=== PATIENT | female | born 1995 | race Caucasian/White ===

== ENCOUNTER 2020-05-14 21:25 | Inpatient (IN) ==
--- OUTSIDE RECORDS SUMMARY | 2020-05-14 21:30 | External Medical Summary | Continuity of Care Document ---
:1995 Author Name Bony MJose, Provider Address Unavailable Unavailable , Care Team Providers Name Role Phone Unavailable Unavailable Unavailable PADMINI NEWELL Unavailable Unavailable Unavailable Unavailable Unavailable Problems Asthma (493.90) (J45.909) Ureteric stone (592.1) (N20.1) Abdominal pain, LLQ (789.04) (R10.32) Nephrolithiasis (592.0) (N20.0) Urinary tract infection (599.0) (N39.0) Allergies and Adverse Reactions Morphine Derivatives (Allergy) Medications Excedrin TABS , M.D. Refills: 0 Nitrofurantoin 100 MG CAPS , M.D. Refills: 0 Procedures Procedures not documented Immunizations Immunizations not documented Family History Father Family history of cardiac disorder (V17.49) (Z82.49) Status: Active Social History - Smoking Status Smokes tobacco daily Plan of Treatment Planned Observations Planned Goals not documented Results No Known Results Results not documented
[2020-05-14] MEDS ORDERED: LACTATED RINGER'S 1,000 ML IV PRN (21:31)
[2020-05-14] MEDS ORDERED: PENICILLIN G POTASSIUM 3 MU in DEXTROSE 5% 100 ML IV PRN (21:31)
[2020-05-14] MEDS ORDERED: PENICILLIN G POTASSIUM 6 MU in DEXTROSE 5% 250 ML IV STA (21:31)
[2020-05-14] MEDS ORDERED: OXYTOCIN 30 UNITS/500 ML BAG IV PRN ×2 (21:31→22:06)
--- NOTE | 2020-05-14 21:35 | Obstetrical Progress Note ---
Date of Service May 14, 2020 Subjective Pt presented via ambulance FHR; CAT1 Ctx; 1-2mins VE: /0 station with bulging membranes admit anticipate VD
[2020-05-14] MEDS ORDERED: SODIUM CHLORIDE 0.9% INJ 10 ML VIAL ONE (21:44)
[2020-05-14] MEDS ORDERED: ePHEDrine sulfate 50 MG/ML AMP ONE (21:44)
[2020-05-14] MEDS ORDERED: BUPIVACAINE 0.25% 30 ML VIAL ONE (21:45)
[2020-05-14] MEDS ORDERED: fentaNYL citrate 100 MCG/2 ML VIAL ONE (21:45)
[2020-05-14] MEDS ORDERED: fentaNYL 2MCG/ML ROPIVACAINE 1.25MG/ML 100 ML BAG EPI ONE (21:46)
[2020-05-14 21:52] LABS: Hematocrit (blood only) 36.7 % (37-47); Hemoglobin 12.1 g/dL (12.0-16.0); Mean Corpuscular Hemoglobin 27.8 pg (25-34); Mean Corpuscular Volume 84.2 fL (80-100); Mean Platelet Volume 11.3 fL (7.4-10.4); Platelet Count 206 K/uL (130-400); RDW Coefficient of Variation 14.6 % (11.5-14.5); RDW Standard Deviation 44.8 fL (36.4-46.3); Red Blood Count 4.36 M/uL (4.2-5.4); White Blood Count 15.11 K/uL (4.8-10.8)
[2020-05-14] MEDS ORDERED: miSOPROStoL 200 MCG TAB ONE (22:02)
[2020-05-14] MEDS ORDERED: ERYTHROMYCIN OP OINT 1 GM PKT ONE (22:03)
[2020-05-14] MEDS ORDERED: SUPERCREAM 0.870% 15 GM JAR EXT PRN (22:06)
[2020-05-14] MEDS ORDERED: BENZOCAINE 20% AER SPR 82.5 GM CAN EXT PRN (22:06)
[2020-05-14] MEDS ORDERED: miSOPROStoL 200 MCG TAB PR ONE (22:06)
[2020-05-14] MEDS ORDERED: HYDROCORTISONE ACETATE 25 MG SUPP PR PRN (22:06)
[2020-05-14] MEDS ORDERED: bisacodyL 10 MG SUPP PR PRN (22:06)
[2020-05-14] MEDS ORDERED: DIPHTHERIA/TETANUS/PERTUSSIS 0.5 ML SYR/VIAL IM ONE (22:06)
[2020-05-14] MEDS ORDERED: METHYLERGONOVINE MALEATE 0.2 MG/ML AMP IM ONE (22:06)
[2020-05-14] MEDS: IBUPROFEN 600 MG TAB PO PRN (22:21)
[2020-05-14 23:11] LABS: Base Excess Cord Venous Blood -1.7 mEq/L (-7.7-1.9); Cord Venous Blood HCO3 23 mmol/L (18.4-26.8); Cord Venous Blood PCO2 37 mmHg (30.4-57.2); Cord Venous Blood PO2 30 mmHg (14.1-43.3)
[2020-05-15] MEDS: ACETAMINOPHEN 325 MG TAB PO PRN ×3 (00:47→21:43)
[2020-05-15] MEDS: IBUPROFEN 600 MG TAB PO PRN ×6 (01:53→23:53)
--- NOTE | 2020-05-15 04:18 | Delivery Summary ---
DATE OF OPERATION: 05/14/2020 The patient delivered a live infant with right hand compound presentation. There was no nuchal cord. was delivered. Delayed cord clamp was performed after 1 minute. Cord blood and cord gas were obtained. Placenta was spontaneously delivered. Inspection of placenta shows a meconium stained placenta. There was meconium at time of rupture. Placenta sent to pathology for pathological analysis. Inspection of the perineum shows no significant laceration or tears. Estimated blood loss is 450 mL. Baby and mother are doing well in recovery. I attest to the content of the Intraoperative Record and any orders documented therein. Any exceptions are noted below. MTDD
[2020-05-15 06:56] LABS: Hematocrit (blood only) 35.1 % (37-47); Hemoglobin 11.5 g/dL (12.0-16.0); Mean Corpuscular Hemoglobin 27.8 pg (25-34); Mean Corpuscular Hgb Conc 32.8 g/dL (32-36); Platelet Count 201 K/uL (130-400); RDW Coefficient of Variation 14.6 % (11.5-14.5); RDW Standard Deviation 45.2 fL (36.4-46.3); Red Blood Count 4.13 M/uL (4.2-5.4); White Blood Count 18.24 K/uL (4.8-10.8)
[2020-05-15] MEDS: DOCUSATE SODIUM 100 MG CAP PO SCH ×2 (08:01→21:41)
[2020-05-15] MEDS: PRENATAL VITAMIN 1 TAB PO SCH (08:01)
--- NOTE | 2020-05-15 08:53 | Obstetrical Progress Note ---
Date of Service May 15, 2020 Assessment & Plan Admission and Anticipated Discharge Date Admission Date: May 14, 2020 Physical Exam Physical Exam: abdomen soft and non tender ambulating well no calf tenderness vaginal bleeding scant hgb 11.5 Results & Data ([facility]) Vital Signs (Past 12 Hours) Vital Signs Temp Pulse Pulse Resp BP BP Pulse Ox 05/15/20 07:30 36.8 C 68 16 120/70 05/15/20 04:25 36.6 C 56 L 18 131/81 05/15/20 00:55 36.7 C 86 18 126/81 05/15/20 00:07 78 122/58 L 05/15/20 00:05 18 05/14/20 23:47 73 128/84 05/14/20 23:35 18 05/14/20 23:31 77 141/73 H 05/14/20 23:17 73 136/67 05/14/20 23:05 18 128/84 05/14/20 23:01 80 119/56 L 05/14/20 22:50 18 05/14/20 22:47 125/58 L 05/14/20 22:43 36.6 C 20 05/14/20 22:35 18 05/14/20 22:32 83 131/66 05/14/20 22:20 18 05/14/20 22:16 76 139/82 05/14/20 22:08 84 136/82 05/14/20 22:05 18 05/14/20 22:01 76 129/80 05/14/20 21:55 113 H 87 L 05/14/20 21:54 108 H 98 05/14/20 21:49 88 98 05/14/20 21:43 72 132/81 05/14/20 21:35 36.6 C
[2020-05-15] MEDS ORDERED: bisacodyL 5 MG TABEC PO SCH (20:00)
[2020-05-15] MEDS ORDERED: AMITRIPTYLINE HCL 25 MG TAB PO SCH (21:00)
[2020-05-16 07:04] LABS: Hematocrit (blood only) 35.6 % (37-47); Hemoglobin 11.6 g/dL (12.0-16.0)
[2020-05-16] MEDS: IBUPROFEN 600 MG TAB PO PRN ×2 (08:14→13:34)
[2020-05-16] MEDS: DOCUSATE SODIUM 100 MG CAP PO SCH (08:14)
[2020-05-16] MEDS: PRENATAL VITAMIN 1 TAB PO SCH (08:14)
--- NOTE | 2020-05-16 09:49 | Obstetrical Progress Note ---
Date of Service May 16, 2020 Assessment & Plan (1) Normal course: PPD #2 pt doing well No complaints d/home with institutions Subjective Ambulation: ambulating normally Voiding: no voiding problems Passing Gas:: Yes Diet Tolerance:: regular diet Lochia:: Small Feeding Type:: breast feeding Review of Systems All systems reviewed & are unremarkable except as noted in HPI & below Physical Exam Constitutional WD/WN, vitals as above well developed and well nourished Eyes PERRL, conjunctivae normal, anicteric sclerae Neck trachea midline, no thyromegaly Respiratory normal respiratory effort, lungs clear to auscultation Auscultation: no crackles, no rales and no wheezes Cardiovascular RRR, no murmur, no edema Gastrointestinal (Abdomen) normal bowel sounds, soft, nontender, no hepatosplenomegaly Uterus is below umbilicus Musculoskeletal no cyanosis or clubbing, extremities motor strength 5/5 Skin no rashes, warm and dry Neurologic patellar DTR's 2+ bilat, sensation intact Psychiatric A+Ox3, euthymic affect Genitourinary normal external appearance Results & Data ([facility]) Vital Signs (Past 12 Hours) Vital Signs Temp Pulse Resp BP Pulse Ox 05/15/20 23:45 36.5 C 64 18 95/52 L 99
[2020-05-16 16:15] VITALS: BP 113/71; PULSE 81; TEMP 97.9; O2SAT 97
[2020-05-16] MEDS: ACETAMINOPHEN 325 MG TAB PO PRN (16:49)
== END 2020-05-16 17:05 | disposition home or self-care (01) | DRG 807 ==
LOC: OPB 21:25 → 4S1 21:26 → 4S2 05-15 00:45

== ENCOUNTER 2024-05-22 13:09 | Observation (INO) ==
[2024-05-22 14:02] LABS: Appearance Urine Clear (Clear); Bacteria Urine Automated None Seen (None Seen); Bilirubin Urine Negative (Negative); Blood Urine Negative (Negative); Cast Urine Automated 0-2 /lpf (0-2); Color Urine Yellow; Glucose Urine UA Negative (Negative); Ketones Urine Negative (Negative); Leukocyte Esterase Urine Trace (Negative); Nitrite Urine Negative (Negative); Protein Urine Negative (Negative); Specific Gravity Urine 1.022 (1.000-1.030); Urobilinogen Urine Negative (Negative); WBC Urine Automated 0-5 /hpf (0-5)
[2024-05-22 14:02] LABS: Basophils # (auto) 0.07 K/uL (0.00-0.20); Basophils % (auto) 0.7 %; Eosinophils # (auto) 0.09 K/uL (0.00-0.50); Eosinophils % (auto) 0.9 %; Hematocrit (blood only) 46.2 % (37.0-47.0); Hemoglobin 15.5 g/dl (12.0-16.0); Immature Granulocytes # (auto) 0.03 K/uL (0.01-0.20); Immature Granulocytes % (auto) 0.3 %; Lymphocytes # (auto) 0.54 K/uL (1.20-3.40); Lymphocytes % (auto) 5.3 %; Mean Corpuscular Hemoglobin 27.2 pg (25.0-34.0); Mean Corpuscular Hgb Conc 33.5 g/dL (32.0-36.0); Mean Corpuscular Volume 81.1 fL (80.0-100.0); Mean Platelet Volume 10.5 fL (9.4-12.4); Monocytes % (auto) 2.9 %; Neutrophils # (auto) 9.25 K/uL (1.40-6.50); Neutrophils % (auto) 89.9 %; Platelet Count 232 K/uL (130-400); RDW Coefficient of Variation 13.9 % (11.5-14.5); RDW Standard Deviation 40.4 fL (36.4-46.3); White Blood Count 10.28 K/ul (4.8-10.8)
[2024-05-22 14:14] LABS: Pregnancy Test, Serum Negative (Negative)
[2024-05-22 14:20] LABS: Albumin Globulin Ratio 1.5 (0.9-2); Albumin Level 4.6 gm/dl (3.4-5.0); BUN Creatinine Ratio 16.5 (10-20); Bilirubin,Total 0.9 mg/dl (0.2-1.0); Calcium 9.5 mg/dl (8.6-10.3); Creatinine Clr Calc Pharmacy 108.6 ml/min; Globulin 3.1 gm/dl (2.5-4.0); Total Protein 7.7 gm/dl (6.0-8.3)
[2024-05-22 14:25] LABS: Troponin I High Sensitivity 2.4 pg/ml (0-14)
[2024-05-22 14:28] LABS: Partial Thromboplastin Time 28 Seconds (21-31); Prothrombin Time 10.6 Seconds (9.0-12.0)
--- NOTE | 2024-05-22 14:31 | Emergency Department Note ---
Impression & Plan Left ovarian cyst, Deep vein thrombosis (DVT) ED Provider Note NAME: DC MELO AGE: 28 SEX: F : 1995 ARRIVES VIA: Walk-In INFORMANT: Patient ED PROVIDER(S): AISHA Valle, Jocelynn Robles MD CHIEF COMPLAINT: Fever HISTORY OF PRESENT ILLNESS: This 28-year-old female patient presents to the emergency department for evaluation of a stomach infection approximately 1 month ago. She reports she was told to return to the emergency department for any returning symptoms. She states fever, body aches, palpitations for the last 4 days. The patient reports she was diagnosed with diverticulitis, and was provided antibiotics. She reports the pain began again in the left lower quadrant, and she is concerned for return of this infection. REVIEW OF SYSTEMS: A review of systems was performed with positives and pertinent negatives listed in the history of present illness. All other systems were reviewed and are negative. ALLERGIES: See below MEDICATIONS: See below PMH: See below PHYSICAL EXAM: VITALS: Vitals are noted on the nurse's note and reviewed by myself. Vital signs stable. GENERAL: 28-year-old female, in no acute distress, nondiaphoretic, well- developed well-nourished. SKIN: The skin was without rashes, erythema, edema, or bruising. HEAD: Normocephalic atraumatic. HEART: Regular rate and rhythm without murmurs gallops or rubs. LUNGS: Clear to auscultation bilaterally without wheezes, rales or rhonchi. No retractions or accessory muscle use. ABDOMEN: Positive bowel sounds x 4. Soft, tender to palpation diffuse lower abdomen, no rebound tenderness or guarding. No signs of peritonitis. MUSCULOSKELETAL: No muscle atrophy, erythema, or edema noted. Normal gait. Strength 5/5 throughout. NEURO: Patient was alert and oriented to person place and time. No focal neurological deficits. MEDICAL DECISION MAKING: The patient is a pleasant 28-year-old female who arrives to the emergency department for evaluation of the above-stated complaint. Initial workup was performed in triage including a saline lock, CBC, CMP, lipase, serum , and urinalysis were obtained. Lab work was unremarkable, urinalysis was negative for infection. CT imaging of the abdomen and pelvis with IV contrast was obtained to rule out diverticulitis, or other intra-abdominal pathology, which showed no sign of infection, however there was a finding of a left complex ovarian cyst, as well as a right internal and external common iliac vein DVT. Hypercoagulability panel was obtained at that time, and weight-based heparin dosing with bolus was ordered. Pelvic ultrasound was also obtained to rule out ovarian torsion on the left. Ultrasound imaging was negative for ovarian torsion, however imaging does show the complex cyst which will need further evaluation by chip washer. [facility], Dr. Hernandez, for management of CT findings. Please refer to his documentation for further patient workup and care. Continuous company accountant: Order was placed for continuous company accountant. Patient was placed on the company accountant. Patient was noted to be in normal sinus rhythm at an initial rate of 95 bpm. DIFFERENTIAL DIAGNOSIS: Appendicitis, ovarian cyst, ovarian torsion, ectopic , TOA, PID, infections, diverticulitis, UTI, obstruction, mesenteric ischemia, aortic pathology, DVT, inflammatory bowel disease, renal colic, PUD, pancreatitis, biliary pathology, hernia, volvulus, constipation, as well as other pathologies. The chart was completed utilizing [employer] Speech voice recognition software. Grammatical errors, random word insertions, pronoun errors, and incomplete sentences are an occasional consequence of this system due to software limitations, ambient noise, and hardware issues. Any formal questions or concerns about the content, text, or information contained within the body of this dictation should be directly addressed to the physician for clarification. Past Med/Surg History Problem List (Updated 05/24/24 @ 08:08 by AISHA Gimenez) Adnexal fullness Vaginal discharge Left ovarian cyst (Acute) Deep vein thrombosis (DVT) (Acute) Enteritis Diverticulitis Normal course Renal calculi (Chronic) Asthma (Chronic) Depression (Chronic) (Acute) Tobacco use disorder (Chronic) Anxiety (Chronic) H/O nephrostomy (Chronic) Abrasion of multiple sites of left lower extremity (Acute) Abrasion of multiple sites of right lower extremity (Acute) Acute chest pain (Acute) Contusion of right chest wall (Acute) E. 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 Beliefs That Will Affect Care: None marital status: Current Living Situation: Family Current Living Situation Comment: apartment current occupational status: disabled How many Children do You have: 2 Feels Safe at Home: Yes Safety Concerns: Feels Safe At This Time during the past year weight has: increased > 10 lbs Assistive Devices: None Allergies Allergies Allergy/AdvReac Type Severity Reaction Status Date / Time morphine Allergy Intermediate RASH,N/V Verified 05/22/24 17:02 mold Allergy Mild Congested Unverified 05/22/24 17:02 mushroom Allergy Mild Rash Unverified 05/22/24 17:02 Home Meds Home Medications Medication Instructions Recorded Confirmed ALBUTEROL HFA (VENTOLIN HFA) 2 puff inhalation BID PRN 02/08/18 05/22/24 SOB/Wheezing #1 inhaler aspirin-caffeine 500 mg-32.5 mg 2 tab PO DAILY PRN Pain 05/16/24 05/22/24 tablet (Stephany Back and Body) docusate sodium 100 mg capsule 100 mg PO DAILY 05/16/24 05/22/24 famotidine 20 mg tablet 20 mg PO DAILY 05/16/24 05/22/24 fluticasone propionate 110 2 puff inhalation BID 05/16/24 05/22/24 mcg/actuation HFA aerosol inhaler magnesium 200 mg tablet 200 mg PO DAILY 05/16/24 05/22/24 oxycodone 5 mg tablet 5 mg PO BID PRN Pain 05/16/24 05/22/24 pantoprazole 40 mg tablet,delayed 40 mg PO DAILY 05/16/24 05/22/24 release tamsulosin 0.4 mg capsule 0.4 mg PO DAILY 05/16/24 05/22/24 Previous Rx's Medication Instructions Recorded ondansetron 4 mg disintegrating 4 mg PO Q6H PRN nausea and 10/21/23 tablet vomiting #12 tabs Results & Data (ED) Vital Signs Vital Signs - 24 hr 05/22/24 13:18 Temperature 36.8 C Temperature Source Temporal Artery Scan Pulse Rate 110 H Respiratory Rate 20 Blood Pressure 132/84 Blood Pressure Mean 100 Blood Pressure Position Sitting Pulse Oximetry 99 Oxygen Delivery Method Room Air Sepsis Recent Fever Within 48 Hours No Sepsis New/Unexplained Change in Mental Status N/A Sepsis Action Taken by Nursing No Action Required Home Medications Current Medication List: was personally reviewed by me Laboratory Data Attestation: I reviewed the patient's lab results. 05/24/24 06:20 05/24/24 06:20 Lab Results 05/22/24 05/22/24 05/22/24 Range/Units 12:00 13:35 13:38 WBC 10.28 (4.8-10.8) K/ul RBC 5.70 H (4.20-5.40) M/uL Hgb 15.5 (12.0-16.0) g/dl Hct 46.2 (37.0-47.0) % MCV 81.1 (80.0-100.0) fL MCH 27.2 (25.0-34.0) pg MCHC 33.5 (32.0-36.0) g/dL RDW Std Deviation 40.4 (36.4-46.3) fL RDW Coeff of [place] 13.9 (11.5-14.5) % Plt Count 232 (130-400) K/uL MPV 10.5 (9.4-12.4) fL Immature Gran % (Auto) 0.3 % Neut % (Auto) 89.9 % Lymph % (Auto) 5.3 % Towns % (Auto) 2.9 % Eos % (Auto) 0.9 % Baso % (Auto) 0.7 % Neut # (Auto) 9.25 H (1.40-6.50) K/uL Lymph # (Auto) 0.54 L (1.20-3.40) K/uL Towns # (Auto) 0.30 (0.11-0.59) K/uL Eos # (Auto) 0.09 (0.00-0.50) K/uL Baso # (Auto) 0.07 (0.00-0.20) K/uL Immature Gran # (Auto) 0.03 (0.01-0.20) K/uL PT 10.6 (9.0-12.0) Seconds INR 1.0 (0.9-1.1) APTT 28 (21-31) Seconds PTT Ratio 1.0 Sodium 138 (136-145) mmol/L Potassium 4.0 (3.5-5.1) mmol/L Chloride 107 (98-107) mmol/L Carbon Dioxide 22 (21-32) mmol/L Anion Gap 9 (3-11) BUN 15 (6-23) mg/dl Creatinine 0.91 (0.6-1.2) mg/dl Est Cr Clr Drug Dosing 108.6 ml/min eGFR 87.04 BUN/Creatinine Ratio 16.5 (10-20) Glucose 94 (70-99(Fasting)) mg/dl Calcium 9.5 (8.6-10.3) mg/dl Total Bilirubin 0.9 (0.2-1.0) mg/dl AST 15 (13-39) U/L ALT 12 (7-52) U/L Alkaline Phosphatase 84 (34-104) U/L Troponin I High Sens 2.4 (0-14) pg/ml Total Protein 7.7 (6.0-8.3) gm/dl Albumin 4.6 (3.4-5.0) gm/dl Globulin 3.1 (2.5-4.0) gm/dl Albumin/Globulin Ratio 1.5 (0.9-2) Lipase 29 (11-82) U/L HCG, Qual Negative (Negative) Urine Color Yellow Urine Appearance Clear (Clear) Urine pH 7.0 (4.5-7.5) Ur Specific [place] 1.022 (1.000-1.030) Urine Protein Negative (Negative) Urine Glucose (UA) Negative (Negative) Urine Ketones Negative (Negative) Urine Blood Negative (Negative) Urine Nitrite Negative (Negative) Urine Bilirubin Negative (Negative) Urine Urobilinogen Negative (Negative) Ur Leukocyte Esterase Trace H (Negative) Urine WBC (Auto) 0-5 (0-5) /hpf Urine RBC (Auto) 3-5 H (0-2) /hpf U Hyaline Cast (Auto) 0-2 (0-2) /lpf U Epithel Cells (Auto) 6-10 H (0-2) /hpf Urine Bacteria (Auto) None Seen (None Seen) HPV E6/E7 mRNA Not Detected (NotDetected) Administered Medications Acetaminophen (Acetaminophen 325 Mg Tab) 650 mg PO Q4H PRN PRN Reason: Pain or Fever Stop: 06/21/24 19:46 Last Admin: 05/24/24 06:12 Dose: 650 mg Documented By: Admin: 05/23/24 15:53 Dose: 650 mg Documented By: Admin: 05/22/24 21:08 Dose: 650 mg Documented By: HECTOR Famotidine (Famotidine 20 Mg Tab) 20 mg PO DAILY [facility] Stop: 06/22/24 08:59 Last Admin: 05/23/24 08:47 Dose: 20 mg Documented By: NEETU Fluticasone Furoate (Fluticasone Furoate 200mcg 14 Puffs/Inhaler) 1 puffs INH DAILY [facility] Stop: 06/22/24 08:59 Last Admin: 05/23/24 08:48 Dose: 1 puffs Documented By: NEETU Heparin Sodium/Dextrose (Heparin Sodium/Dextrose) 25,000 units in 500 mls @ 27 mls/hr IV .[id number] [facility]; Protocol Stop: 06/21/24 17:29 Last Titration: 05/24/24 06:57 Dose: 1,350 units/hr, 27 mls/hr Documented By: HECTOR Co-signed By: DAPHNE Titration: 05/23/24 18:52 Dose: 1,350 units/hr, 27 mls/hr Documented By: NEETU Co-signed By: HECTOR Admin: 05/23/24 14:23 Dose: 1,350 units/hr, 27 mls/hr Documented By: LAWRENCE Co-signed By: KATELIN Titration: 05/23/24 12:32 Dose: Infused Documented By: LAWRENCE Co-signed By: KATELIN Titration: 05/23/24 07:17 Dose: 1,350 units/hr, 27 mls/hr Documented By: HECTOR Co-signed By: NEETU Titration: 05/23/24 01:20 Dose: 1,350 units/hr, 27 mls/hr Documented By: HECTOR Co-signed By: ALISHA Admin: 05/22/24 18:00 Dose: 1,350 units/hr, 27 mls/hr Documented By: FARHAT Co-signed By: ROOSEVELT Nicotine Polacrilex (Nicotine Polacrilex 2 Mg Gum) 1 piece MT Q2H PRN PRN Reason: smoking withdrawal Stop: 06/22/24 13:56 Last Admin: 05/24/24 06:18 Dose: 1 piece Documented By: Admin: 05/23/24 20:09 Dose: 1 piece Documented By: HECTOR Ondansetron HCl (Ondansetron Inj 2 Mg/Ml 2 Ml Vial) 4 mg IV Q6H PRN PRN Reason: Nausea Stop: 06/21/24 19:46 Last Admin: 05/24/24 06:10 Dose: 4 mg Documented By: HECTOR Oxycodone HCl (Oxycodone Hcl Ir 5 Mg Tab (Immediate Release)) 5 mg PO Q8H PRN PRN Reason: Mod-Sev Pain (Scale 4-10) Stop: 06/06/24 07:42 Last Admin: 05/23/24 15:54 Dose: 5 mg Documented By: Admin: 05/23/24 08:46 Dose: 5 mg Documented By: NEETU Pantoprazole Sodium (Pantoprazole 40 Mg Tab) 40 mg PO DAILY [facility] Stop: 06/22/24 08:59 Last Admin: 05/23/24 08:47 Dose: 40 mg Documented By: NEETU Tamsulosin HCl (Tamsulosin Hcl 0.4 Mg Cap) 0.4 mg PO DAILY [facility] Stop: 06/22/24 08:59 Last Admin: 05/23/24 08:47 Dose: 0.4 mg Documented By: NEETU Discontinued Medications Fluconazole (Fluconazole 50 Mg Tab) 150 mg PO NOW ONE Stop: 05/22/24 22:49 Last Admin: 05/22/24 23:16 Dose: 150 mg Documented By: HECTOR Heparin Sodium (Porcine) (Heparin Sod (Porcine) 1000 Unit/Ml) 6,000 units IV NOW ONE Stop: 05/22/24 18:01 Last Admin: 05/22/24 18:00 Dose: 6,000 units Documented By: FARHAT Co-signed By: ROOSEVELT Heparin Sodium/Dextrose (Heparin Iv Adult Wt-Based Standard W/ Initial Bolus Protocol) 1 each IV NOW STA; Protocol Stop: 05/22/24 16:58 Last Admin: 05/22/24 18:05 Dose: Not Given Documented By: MMF Sodium Chloride (Nss) 1,000 mls @ 999 mls/hr IV .Q1H1M ONE Stop: 05/22/24 15:39 Last Infusion: 05/22/24 20:34 Dose: Infused Documented By: Admin: 05/22/24 16:10 Dose: 999 mls/hr Documented By: VME Sodium Chloride (Nss) 1,000 mls @ 999 mls/hr IV .Q1H1M ONE Stop: 05/22/24 18:11 Last Infusion: 05/22/24 20:34 Dose: Infused Documented By: Admin: 05/22/24 18:05 Dose: 999 mls/hr Documented By: MMF Sodium Chloride (Nss) 1,000 mls @ 80 mls/hr IV .[id number] VIPIN Stop: 05/23/24 08:16 Last Infusion: 05/23/24 11:49 Dose: Infused Documented By: JBDahlia Admin: 05/22/24 21:02 Dose: 80 mls/hr Documented By: HECTOR Ioversol (Optiray 320 100ml) 90 ml IV ONCE ONE Stop: 05/22/24 15:28 Last Admin: 05/22/24 15:27 Dose: 90 ml Documented By: ISA Ioversol (Optiray 320 125ml) 119 ml IV ONCE ONE Stop: 05/23/24 14:43 Last Admin: 05/23/24 14:43 Dose: 119 ml Documented By: DENYS Ondansetron HCl (Ondansetron Inj 2 Mg/Ml 2 Ml Vial) 4 mg IV NOW STA Stop: 05/22/24 14:40 Last Admin: 05/22/24 16:11 Dose: 4 mg Documented By: LISA Imaging Data Attestation: I personally reviewed and interpreted this imaging study as follows: Discharge Plan Visit Data Chief Complaint: Fever Stated Complaint: FEVER, VOMITING, CHEST PAIN ED Provider: Jocelynn Robles ED Midlevel Provider: Genia Hurd Discharge Problem: Left ovarian cyst, Deep vein thrombosis (DVT) Patient Disposition: Admitted As Inpatient Discharge Instructions Interventions: ED Discharge Assessment Last Done: 05/22/24 18:47
--- NOTE | 2024-05-22 15:18 | Electrocardiogram Report ---
Test Reason : Blood Pressure : */* mmHG Vent. Rate : 109 BPM Atrial Rate : 109 BPM P-R Int : 134 ms QRS Dur : 78 ms QT Int : 322 ms P-R-T Axes : 51 33 -14 degrees QTcB Int : 433 ms Sinus tachycardia Nonspecific ST abnormality Abnormal ECG When compared with ECG of 10-Jan-2018 16:30, Vent. rate has increased by [address] now depressed in Anterior leads Confirmed by Rusty De La Garza ([id number]) on 05/22/2024 3:17:39 PM Referred By: Confirmed By: Rusty De La Garza
[2024-05-22] MEDS: OPTIRAY 320 100ml IV ONE (15:27)
--- NOTE | 2024-05-22 15:31 | XRay Report ---
XR chest 1V not portable CLINICAL HISTORY: Chest pain, nonspecific COMPARISON STUDY: Chest CT January 10, 2018. Chest radiograph February 08, 2018. FINDINGS: Lung volumes are normal. Lungs are clear. There is no pneumothorax or pleural effusion. Car diac size is normal. Mediastinal contours are normal. There is no evidence for pulmonary edema. IMPRESSION: No acute cardiopulmonary findings. ACT 112: Negative or not required by law. Electronically signed by: Brad Jasso M.D. 05/22/2024 3:30 PM
[2024-05-22] MEDS: SODIUM CHLORIDE 0.9% 1,000 ML IV ONE ×2 (16:10→18:05)
[2024-05-22] MEDS: ONDANSETRON INJ 2 MG/ML 2 ML VIAL IV STA (16:11)
--- NOTE | 2024-05-22 16:17 | CT Scan Report ---
ABDOMEN AND PELVIS CT WITH IV CONTRAST CT DOSE: 1362.85 mGy.cm HISTORY: Acute onset abdominal pain diffuse pain hx diverticulitis TECHNIQUE: Multiaxial CT images of the abdomen and pelvis were performed following the IV administrat ion of 90 cc of Optiray, A dose lowering technique was utilized adhering to the principles of ALARA. COMPARISON STUDY: 04/27/2024 FINDINGS: Clear lung bases. No pneumoperitoneum. Unremarkable spleen, pancreas, gallbladder, adrenal glands and liver. Patent portal vein. lobulations of the kidneys. 3 mm nonobstructing calculus of the superior pole left kidney. There is no hydronephrosis. Decompressed urinary bladder with mild wall thickening. Anteflexed uterus. Interval development of a thick walled cystic focus in the left p ricky/adnexa measuring 5.5 x 6.5 cm. Trace free pelvic fluid. There is resolution of the previously d escribed pelvic wall thickening. No CT evidence of acute appendicitis. Deep venous thrombi noted with in the right common, internal and external iliac veins, in retrospect also present on the prior study . No acute fracture. IMPRESSION: 1. No bowel obstruction, bowel wall thickening or pneumoperitoneum. 2. Interval development of a thick-walled 6.5 cm left adnexal cyst. One-month follow-up pelvic ultras ound recommended. 3. Deep venous thrombi within the right common, internal and external iliac veins. 4. Left nephrolithiasis. ACT 112: Negative or not required by law. The above report was generated using voice recognition software. It may contain grammatical, syntax o r spelling errors. Electronically signed by: Raúl Valdez M.D. 05/22/2024 4:15 PM
[2024-05-22] MEDS ORDERED: HEPARIN SOD (PORCINE) 1000 UNIT/ML IV ONE (17:17)
--- NOTE | 2024-05-22 17:23 | History & Physical Report ---
Date of Service May 22, 2024 Assessment & Plan (1) Deep vein thrombosis (DVT): Plan Yakelin Dodge is a 28y/o with PMHx significant for asthma, slow transit constipation, renal calculi, chronic pain of both knees, migraines, depression/anxiety, tobacco use disorder and GERD who presented to the ED for evaluation of multiple constitutional complaints including fever/arthralgias, abdominal pain, diarrhea/vomiting, heart palpitations and SOB. She was found to have multiple deep vein thrombi within the right common, internal and external iliac veins on admitting imaging. Patient with no previous history of DVT or PE. Multiple RLE DVT: CTAP --> "Deep vein thrombi within the right common, internal and external iliac veins." Vitals stable. Initially was tachycardic on arrival however that has since resolved. She has not required supplemental oxygen. Hold off on chest CTA for now per discussion had between Dr. Hernandez and Dr. Bauer. IV heparin initiated in the ED. Lab work rather unremarkable thus far. BLE venous doppler pending. Hypercoagul able workup pending. Continue gentle IVF. SOB/Dyspnea Chest Pain, Heart Palpitations: CXR negative. RVP negative. EKG negative for any acute ischemic findings but did note tachycardia as per above. Initial troponin negative however will continue to trend. EKG with chest pain PRN. Duonebs PRN. Oxygen order PRN. Diarrhea, Nausea/Vomiting: Stool PCR pending; C. diff testing pending given recent ABX use last month. PRN IV Zofran. Liquid diet, can advance MYRNA. Left Adnexal Cyst: CTAP --> "Interval development of a thick-walled 6.5 cm left adnexal cyst." Could possibly be contributing to her abdominal pain, however likely an incidental finding. Transvaginal/pelvic US pending to r/o possible ovarian torsion per ED provider. S[employer]OL J[employer]ITOR consult pending. Other Chronic Medical Conditions: Asthma, GERD --> Can continue home medications for these specific conditions. Hold home magnesium, Colace ISO diarrhea. Continue Flomax. DVT Prophylaxis: On IV heparin as per above. Code Status: FULL CODE PCP: Angeline Almaraz MD Disposition: Admit to PCU/Telemetry Patient seen in collaboration with Dr. Hernandez. Please see addendum. I spent a total of 65 minutes coordinating, documenting, and providing care for this patient excluding time spent in the performance of separately billed services. This included personally reviewing all current laboratories and imaging studies, medical reconciliation, outpatient chart review and discussion with specialists. This chart was completed in part utilizing Speech Voice Recognition Software. Grammatical errors, random word insertions, pronoun errors, and incomplete sentences are an occasional consequence of this system due to software limitations, ambient noise, and hardware issues. Any formal questions or concerns about the content, text, or information contained within the body of this dictation should be directly addressed to the provider for clarification. History of Present Illness Chief Complaint: Multiple Complaints - Fever/Abdominal Pain/Palpitations/Etc. Primary Care Provider: Angeline Almaraz MD Yakelin Dodge is a 28y/o with PMHx significant for asthma, slow transit constipation, renal calculi, chronic pain of both knees, migraines, depression/anxiety, tobacco use disorder and GERD who presented to the ED for evaluation of multiple constitutional complaints including fever/arthralgias, abdominal pain, diarrhea/vomiting, heart palpitations and SOB. History obtained from patient and associated chart review. Patient seen at bedside with Dr. Hernandez. Patient reports that she has had multiple episodes of vomiting overnight. She has been dealing with an ongoing fever, body aches and palpitations for the past 4 days. She reports that she had some central, sharp chest pain overnight with associated palpitations. She has notably had fevers over the past couple days with the highest being around 103F. She has had some diarrhea as well since her diagnosis of diverticulitis last month when she was seen in the ED. She completed a 10-day course of Augmentin at that time. She denies any blood in her stool or urine. She has had generalized abdominal pain since this morning. She started with a bad headache this morning as well that has not fully yet subsided. She does deal with frequent migraines at baseline. She has also had a sore throat over the past couple of days. Her daughter was recently sick but otherwise she is unaware of any other ill contacts. She has been feeling short of breath intermittently over the past few days as well. She has had to use her rescue albuterol inhaler multiple times and that seems to help with her breathing. Patient made aware that her CTAP revealed multiple deep venous thrombi within the right common, internal and external iliac veins. No personal history of DVT or PE. She does not recall any family history of DVT or PE either. She does endorse some intermittent right hip/groin/upper thigh discomfort however over the past couple of months. She does smoke about a 1/2 pack of cigarettes per day. No recent oral contraceptive use. No alcohol or illicit drug use. She does endorse some sharp pain down her left leg which has been ongoing for months and is unchanged recently. Also made her aware of the left adnexal cyst finding on her CTAP. She reports that she has had an adnexal cyst in the past which resolved spontaneously without intervention. Denies need for nicotine patch at this time - reports she has used them in the past and have caused her skin to burn. Allergies Allergy/AdvReac Type Severity Reaction Status Date / Time morphine Allergy Intermediate RASH,N/V Verified 05/22/24 17:02 mold Allergy Mild Congested Unverified 05/22/24 17:02 mushroom Allergy Mild Rash Unverified 05/22/24 17:02 Home Medications Medication Instructions Recorded Confirmed Type ALBUTEROL HFA (VENTOLIN HFA) 2 puff inhalation BID PRN 02/08/18 05/22/24 History SOB/Wheezing #1 inhaler ondansetron 4 mg disintegrating 4 mg PO Q6H PRN nausea and 10/21/23 05/22/24 Rx tablet vomiting #12 tabs aspirin-caffeine 500 mg-32.5 mg 2 tab PO DAILY PRN Pain 05/16/24 05/22/24 History tablet (Stephany Back and Body) docusate sodium 100 mg capsule 100 mg PO DAILY 05/16/24 05/22/24 History famotidine 20 mg tablet 20 mg PO DAILY 05/16/24 05/22/24 History fluticasone propionate 110 2 puff inhalation BID 05/16/24 05/22/24 History mcg/actuation HFA aerosol inhaler magnesium 200 mg tablet 200 mg PO DAILY 05/16/24 05/22/24 History oxycodone 5 mg tablet 5 mg PO BID PRN Pain 05/16/24 05/22/24 History pantoprazole 40 mg tablet,delayed 40 mg PO DAILY 05/16/24 05/22/24 History release tamsulosin 0.4 mg capsule 0.4 mg PO DAILY 05/16/24 05/22/24 History Past Med/Surg History Problem List Deep vein thrombosis (DVT) Enteritis Diverticulitis Normal course Renal calculi (Chronic) Asthma (Chronic) Depression (Chronic) (Acute) Tobacco use disorder (Chronic) Anxiety (Chronic) H/O nephrostomy (Chronic) Abrasion of multiple sites of left lower extremity (Acute) Abrasion of multiple sites of right lower extremity (Acute) Acute chest pain (Acute) Contusion of right chest wall (Acute) E. coli UTI Medical History History of abdominal abscess Broken arm No pertinent past medical history Normal spontaneous vaginal delivery Spontaneous vaginal delivery 01/2016 Surgical History History of tonsillectomy Family History Father Heart disease Social History Smoking Status: Current every day smoker Tobacco Type: Cigarettes Age Started Using Tobacco: 13; Cigarettes Per Day: 1/2 pack; Second Hand Exposure: Yes; Do You Dip or Chew Tobacco: No; Hx Alcohol Use: No Hx Substance Use: No Preferred Language: Swedish Communication Ability: Effective Writer Technical Publications Required: No Beliefs That Will Affect Care: None marital status: Current Living Situation: Family Current Living Situation Comment: apartment current occupational status: disabled How many Children do You have: 2 Feels Safe at Home: Yes Safety Concerns: Feels Safe At This Time during the past year weight has: increased > 10 lbs Assistive Devices: None Review of Systems Review of Systems: At least ten systems reviewed and negative, except as noted in the HPI. Physical Exam Physical Exam: Please refer to Dr. Hernandez's addendum for physical examination findings. Results & Data Results & Data Vital Signs (Past 12 Hours) Vital Signs Temp Pulse Pulse Resp BP BP Pulse Ox 05/22/24 17:01 77 17 113/53 L 99 05/22/24 16:58 77 22 97 05/22/24 16:58 97 05/22/24 15:09 95 H 18 124/81 100 05/22/24 13:18 36.8 C 110 H 20 132/84 99 O2 Del Method O2 Flow Rate 05/22/24 17:01 Room Air 05/22/24 16:58 Room Air 05/22/24 16:58 Room Air 0 05/22/24 15:09 Room Air 05/22/24 13:18 Room Air Laboratory Results Short CBC 05/22/24 Range/Units 13:35 WBC 10.28 (4.8-10.8) K/ul Hgb 15.5 (12.0-16.0) g/dl Hct 46.2 (37.0-47.0) % Plt Count 232 (130-400) K/uL BMP 05/22/24 13:35 Sodium 138 Potassium 4.0 Chloride 107 Carbon Dioxide 22 BUN 15 Creatinine 0.91 Glucose 94 Calcium 9.5 Liver Function 05/22/24 Range/Units 13:35 Total Bilirubin 0.9 (0.2-1.0) mg/dl AST 15 (13-39) U/L ALT 12 (7-52) U/L Alkaline Phosphatase 84 (34-104) U/L Albumin 4.6 (3.4-5.0) gm/dl Urine 05/22/24 Range/Units 13:38 Urine Color Yellow Urine Appearance Clear (Clear) Urine pH 7.0 (4.5-7.5) Ur Specific [place] 1.022 (1.000-1.030) Urine Protein Negative (Negative) Urine Glucose (UA) Negative (Negative) Diagnostic Findings Chest X-Ray 05/22/24 13:20 XR chest 1V not portable CLINICAL HISTORY: Chest pain, nonspecific COMPARISON STUDY: Chest CT January 10, 2018. Chest radiograph February 08, 2018. FINDINGS: Lung volumes are normal. Lungs are clear. There is no pneumothorax or pleural effusion. Cardiac size is normal. Mediastinal contours are normal. There is no evidence for pulmonary edema. IMPRESSION: No acute cardiopulmonary findings. ACT 112: Negative or not required by law. Electronically signed by: Brad Jasso M.D. 05/22/2024 3:30 PM Abdomen/Pelvis CT 05/22/24 14:[address] WITH IV CONTRAST CT DOSE: 1362.85 mGy.cm HISTORY: Acute onset abdominal pain diffuse pain hx diverticulitis TECHNIQUE: Multiaxial CT images of the abdomen and pelvis were performed following the IV administration of 90 cc of Optiray, A dose lowering technique was utilized adhering to the principles of ALARA. COMPARISON STUDY: 04/27/2024 FINDINGS: Clear lung bases. No pneumoperitoneum. Unremarkable spleen, pancreas, gallbladder, adrenal glands and liver. Patent portal vein. lobulations of the kidneys. 3 mm nonobstructing calculus of the superior pole left kidney. There is no hydronephrosis. Decompressed urinary bladder with mild wall thickening. Anteflexed uterus. Interval development of a thick walled cystic focus in the left pelvis/adnexa measuring 5.5 x 6.5 cm. Trace free pelvic fluid. There is resolution of the previously described pelvic wall thickening. No CT evidence of acute appendicitis. Deep venous thrombi noted within the right common, internal and external iliac veins, in retrospect also present on the prior study. No acute fracture. IMPRESSION: 1. No bowel obstruction, bowel wall thickening or pneumoperitoneum. 2. Interval development of a thick-walled 6.5 cm left adnexal cyst. One-month follow-up pelvic ultrasound recommended. 3. Deep venous thrombi within the right common, internal and external iliac veins. 4. Left nephrolithiasis. ACT 112: Negative or not required by law. The above report was generated using voice recognition software. It may contain grammatical, syntax or spelling errors. Electronically signed by: Raúl Valdez M.D. 05/22/2024 4:15 PM Medications Administered Discontinued Medications Sodium Chloride (Nss) 1,000 mls @ 999 mls/hr IV .Q1H1M ONE Stop: 05/22/24 15:39 Last Admin: 05/22/24 16:10 Dose: 999 mls/hr Documented By: LISA Ioversol (Optiray 320 100ml) 90 ml IV ONCE ONE Stop: 05/22/24 15:28 Last Admin: 05/22/24 15:27 Dose: 90 ml Documented By: ISA Ondansetron HCl (Ondansetron Inj 2 Mg/Ml 2 Ml Vial) 4 mg IV NOW STA Stop: 05/22/24 14:40 Last Admin: 05/22/24 16:11 Dose: 4 mg Documented By: VME Code Status & VTE Plan Code Status FULL CODE VTE Prophylaxis Plan VTE Prophylaxis will be ordered: Yes Supervising Physician Co-Signing Physician Notes Attending Addendum: Case reviewed with the advanced practitioner. I have personally performed a history and physical examination on the patient. I have reviewed the advanced practitioner's documentation on the date of service referenced in note, and I agree with, and take responsibility for the plan of care. please refer to her notes for full details patient seen and examined, records reviewed by myself as well on exam, patient Seen resting in bed, on room air, not in distress Reports intermittent chest pain, palpitations, shortness of breath Reports generalized abdominal discomfort associated with several days history of diarrhea, nonbloody Reports intermittent fever no other symptoms VS noted and reviewed oriented x3, not in distress, speaks in sentences with no effort nor accessory muscle use normal rate, regular rhythm, no murmurs clear breath sounds bilaterally non distended, soft,Mild tenderness in all quadrants no bipedal edema, erythema, warmth no neuro deficits all labs, imaging noted and reviewed ASSESSMENT AND PLAN> Acute DVT Right common, internal and external iliac veins Possible underlying acute pulmonary embolism given shortness of breath, tachycardia Currently hemodynamically stable, no hypoxia Hold off on chest CTA as patient already received IV contrast for CT abdomen/pelvis today, discussed with railroad hand Dr. Bauer Check Doppler ultrasound bilateral lower extremities Echocardiogram Patient denies history of immobility, numbness, surgery, long drives or flights Denies history of OCP use BioFire negative Hypercoagulable workup ordered Heparin drip initiated Nausea, diarrhea, abdominal pain CT abdomen pelvis: 1. No bowel obstruction, bowel wall thickening or pneumoperitoneum.\\ 2. Interval development of a thick-walled 6.5 cm left adnexal cyst. One-month follow-up pelvic ultrasound recommended. Stool PCR and C. difficile studies ordered IV fluids Pelvic ultrasound, SCHOOL J[employer]ITOR consult other diagnoses and plan of care as per advanced practitioner's notes Aleksandar Heranndez MD (1) Deep vein thrombosis (DVT) Chronicity: acute DVT location: non-extremity vein Qualified Code(s): I82.90 - Acute embolism and thrombosis of unspecified vein
[2024-05-22 17:33] LABS: Adenovirus PCR Not Detected (NotDetected); Bordetella parapertussis PCR Not Detected (NotDetected); Bordetella pertussis PCR Not Detected (NotDetected); Chlamydia pneumoniae PCR Not Detected (NotDetected); Coronavirus 229E PCR Not Detected (NotDetected); Coronavirus CoV-2 (COVID19)PCR Not Detected (NotDetected); Coronavirus HKU1 PCR Not Detected (NotDetected); Coronavirus NL63 PCR Not Detected (NotDetected); Coronavirus OC43PCR Not Detected (NotDetected); Human Metapneumovirus PCR Not Detected (NotDetected); Influenza A PCR Not Detected (NotDetected); Influenza B PCR Not Detected (NotDetected); Mycoplasma pneumoniae PCR Not Detected (NotDetected); Parainfluenza Virus 1 PCR Not Detected (NotDetected); Parainfluenza Virus 2 PCR Not Detected (NotDetected); Parainfluenza Virus 3 PCR Not Detected (NotDetected); Parainfluenza Virus 4 PCR Not Detected (NotDetected); Respiratory Syncytial VirusPCR Not Detected (NotDetected); Rhinovirus/Enterovirus PCR Not Detected (NotDetected)
[2024-05-22] MEDS: HEPARIN SODIUM/DEXTROSE 25,000 UNITS/500 ML BAG IV SCH (18:00)
[2024-05-22] MEDS: HEPARIN SOD (PORCINE) 1000 UNIT/ML IV ONE (18:00)
[2024-05-22] MEDS: Heparin IV Adult Wt-Based Standard w/ INITIAL Bolus Protocol IV STA (18:05)
[2024-05-22] MEDS ORDERED: ALBUT/IPRATROP 3MG/0.5MG NEB 3 ML VIAL NEB PRN (19:47)
[2024-05-22] MEDS ORDERED: MAGNESIUM HYDROXIDE SUSP 30 ML UDC PO PRN (19:47)
[2024-05-22] MEDS ORDERED: POLYETHYLENE (MIRALAX) 17 GM PACK PO PRN (19:47)
[2024-05-22] MEDS: SODIUM CHLORIDE 0.9% 1,000 ML IV SCH (21:02)
[2024-05-22] MEDS: ACETAMINOPHEN 325 MG TAB PO PRN (21:08)
--- NOTE | 2024-05-22 22:23 | OB/GYN Consultation ---
Date of Consultation May 22, 2024 Assessment & Plan (1) Deep vein thrombosis (DVT): (2) Left ovarian cyst: Patient is a 28-year-old -0-1-2 who was admitted for abdominal pain, migraines, found to have Deep venous thrombi within the right common, internal and external iliac veins, incidental finding of 6 cm left ovarian cyst, ultrasound confirmed good blood flow and simple cyst, I completed pelvic exam, collected cultures and Pap smear, Plan to treat with single dose of Diflucan empirically for vaginal candidiasis, await culture results, follow-up in office with repeat ultrasound for resolution of the simple cyst, blood work for CA markers, added for morning labs, Will follow the results, All questions were answered. (3) Vaginal discharge: (4) Adnexal fullness: History of Present Illness Reason for Consultation: Adnexal cyst Attending Physician: Aleksandar Hernandez MD History of Present Illness Patient is a 28-year-old G3, P2 P1-0-1-2 with LMP of 3 weeks ago who was admitted by medicine for DVT. patient presented with abdominal pain, nausea vomiting, migraines. CT of abdomen/ PELVIS : IMPRESSION: 1. No bowel obstruction, bowel wall thickening or pneumoperitoneum. 2. Interval development of a thick-walled 6.5 cm left adnexal cyst. One-month follow-up pelvic ultrasound recommended. 3. Deep venous thrombi within the right common, internal and external iliac veins. 4. Left nephrolithiasis. she also had pelvic ultrasound, report is pending but per preliminary report there is a 6 x 5 cm left ovarian simple cyst with good blood flow, no signs of torsion. I was called for consult. Patient states she gets her periods regularly but they have been very painful and heavy. She was planning to get hysterectomy. She had 2 full-term vaginal deliveries, has not been sexually active due to her partner being deployed in the [employer]. She does not use any contraception and Denies any chance of . She denies any history of STDs including chlamydia, gonorrhea, herpes. She reports white milky discharge and recent use of antibiotics. she has history of abnormal Pap smear, LGSIL in 2019, repeat Pap smear in 2021 was negative/ normal. Allergies Allergy/AdvReac Type Severity Reaction Status Date / Time morphine Allergy Intermediate RASH,N/V Verified 05/22/24 17:02 mold Allergy Mild Congested Unverified 05/22/24 17:02 mushroom Allergy Mild Rash Unverified 05/22/24 17:02 Home Medications Medication Instructions Recorded Confirmed Type ALBUTEROL HFA (VENTOLIN HFA) 2 puff inhalation BID PRN 02/08/18 05/22/24 History SOB/Wheezing #1 inhaler ondansetron 4 mg disintegrating 4 mg PO Q6H PRN nausea and 10/21/23 05/22/24 Rx tablet vomiting #12 tabs aspirin-caffeine 500 mg-32.5 mg 2 tab PO DAILY PRN Pain 05/16/24 05/22/24 History tablet (Stephany Back and Body) docusate sodium 100 mg capsule 100 mg PO DAILY 05/16/24 05/22/24 History famotidine 20 mg tablet 20 mg PO DAILY 05/16/24 05/22/24 History fluticasone propionate 110 2 puff inhalation BID 05/16/24 05/22/24 History mcg/actuation HFA aerosol inhaler magnesium 200 mg tablet 200 mg PO DAILY 05/16/24 05/22/24 History oxycodone 5 mg tablet 5 mg PO BID PRN Pain 05/16/24 05/22/24 History pantoprazole 40 mg tablet,delayed 40 mg PO DAILY 05/16/24 05/22/24 History release tamsulosin 0.4 mg capsule 0.4 mg PO DAILY 05/16/24 05/22/24 History Patient History Medical History History of abdominal abscess Broken arm No pertinent past medical history Normal spontaneous vaginal delivery Spontaneous vaginal delivery 01/2016 Surgical History History of tonsillectomy Family History Father Heart disease Social History Smoking Status: Current every day smoker Tobacco Type: Cigarettes Age Started Using Tobacco: 13; Cigarettes Per Day: 1/2 pack; Second Hand Exposure: Yes; Do You Dip or Chew Tobacco: No; Hx Alcohol Use: No Hx Substance Use: No Preferred Language: Serbian Communication Ability: Effective Burner Shaft Required: No Beliefs That Will Affect Care: None marital status: Current Living Situation: Family Current Living Situation Comment: apartment current occupational status: disabled How many Children do You have: 2 Feels Safe at Home: Yes Safety Concerns: Feels Safe At This Time during the past year weight has: increased > 10 lbs Assistive Devices: None Physical Exam Constitutional: WD/WN, vitals as above Gastrointestinal (Abdomen): Inspection/Auscultation: abdomen normal to inspection Genitourinary: normal external appearance Speculum/Bimanual Exam: + abnormal cervical discharge ( White milky discharge), + abnormal adnexa ( left adnexal fullness), + adnexal tenderness and + abnormal vaginal discharge ( same discharge noted) Pap smear and cultures were collected Results & Data Vital Signs (Past 12 Hours) Vital Signs Temp Pulse Pulse Resp BP BP Pulse Ox 05/22/24 20:00 05/22/24 19:47 36.5 C 79 20 110/71 99 05/22/24 17:43 81 05/22/24 17:01 77 17 113/53 L 99 05/22/24 16:58 77 22 97 05/22/24 16:58 97 05/22/24 15:09 95 H 18 124/81 100 05/22/24 13:18 36.8 C 110 H 20 132/84 99 O2 Del Method O2 Flow Rate 05/22/24 20:00 Room Air 05/22/24 19:47 Room Air 05/22/24 17:43 05/22/24 17:01 Room Air 05/22/24 16:58 Room Air 05/22/24 16:58 Room Air 0 05/22/24 15:09 Room Air 05/22/24 13:18 Room Air (1) Deep vein thrombosis (DVT) DVT location: non-extremity vein Chronicity: acute Qualified Code(s): I82.90 - Acute embolism and thrombosis of unspecified vein
[2024-05-22] MEDS: FLUCONAZOLE 50 MG TAB PO ONE (23:16)
[2024-05-23 01:07] LABS: ANTI-Xa, UFH(UnfractionatedHep 0.52 IU/ml (0.3-0.7)
[2024-05-23 07:07] LABS: Hematocrit (blood only) 37.9 % (37.0-47.0); Hemoglobin 12.1 g/dl (12.0-16.0); Mean Corpuscular Hemoglobin 26.7 pg (25.0-34.0); Mean Corpuscular Hgb Conc 31.9 g/dL (32.0-36.0); Mean Corpuscular Volume 83.7 fL (80.0-100.0); Mean Platelet Volume 10.6 fL (9.4-12.4); Platelet Count 176 K/uL (130-400); RDW Coefficient of Variation 14.2 % (11.5-14.5); RDW Standard Deviation 43.5 fL (36.4-46.3); Red Blood Count 4.53 M/uL (4.20-5.40); White Blood Count 4.42 K/ul (4.8-10.8)
[2024-05-23 07:24] LABS: ANTI-Xa, UFH(UnfractionatedHep 0.44 IU/ml (0.3-0.7)
[2024-05-23 07:33] LABS: BUN Creatinine Ratio 11.2 (10-20); Creatinine Clr Calc Pharmacy 112.1 ml/min; Magnesium 1.7 mg/dl (1.7-2.4); Phosphorus 3.3 mg/dl (2.5-4.9); Potassium 4.1 mmol/L (3.5-5.1)
[2024-05-23] MEDS: oxyCODONE HCL IR 5 MG TAB (IMMEDIATE RELEASE) PO PRN (08:46)
[2024-05-23] MEDS: FAMOTIDINE 20 MG TAB PO SCH (08:47)
[2024-05-23] MEDS: PANTOprazole 40 MG TAB PO SCH (08:47)
[2024-05-23] MEDS: TAMSULOSIN HCL 0.4 MG CAP PO SCH (08:47)
[2024-05-23] MEDS: FLUTICASONE FUROATE 200MCG 14 PUFFS/INHALER INH SCH (08:48)
--- NOTE | 2024-05-23 11:24 | Hospitalist Progress Note ---
Date of Service May 23, 2024 Assessment & Plan (1) Deep vein thrombosis (DVT): Plan Yakelin Dodge is a 28y/o with PMHx significant for asthma, slow transit constipation, renal calculi, chronic pain of both knees, migraines, depression/anxiety, tobacco use disorder and GERD who presented to the ED for evaluation of multiple constitutional complaints including fever/arthralgias, abdominal pain, diarrhea/vomiting, heart palpitations and SOB. She was found to have multiple deep vein thrombi within the right common, internal and external iliac veins on admitting imaging. Patient with no previous history of DVT or PE. Multiple RLE DVT: CT Abd/pelvis noting "Deep vein thrombi within the right common, internal and external iliac veins." Hemodynamically stable, no increased oxygen requirement CTA chest currently pending (was not done on admission per recs of pulsuresh as pt had already received IV contrast for abd/pelvis CT) Bilateral lower extremity venous dopplers completed but read pending Hypercoagulable workup ordered in the ED, pending IV heparin Continue to monitor on telemetry SOB/Dyspnea Chest Pain, Heart Palpitations: CXR negative Biofire respiratory panel negative. EKG negative for any acute ischemic findings but did note sinus tachycardia hs-trop negative x3 Echo ordered and pending Duonebs PRN Continue to monitor Diarrhea, Nausea/Vomiting: Stool PCR pending C. diff testing pending PRN IV Zofran Advance diet as tolerated Left Adnexal Cyst: CT abd/pelvis: "Interval development of a thick-walled 6.5 cm left adnexal cyst ." Could possibly be contributing to her abdominal pain Transvaginal/pelvic US pending to r/o possible ovarian torsion per ED provider. 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 Other Chronic Medical Conditions: Asthma, GERD --> Can continue home medications for these specific conditions. Hold home magnesium, Colace ISO diarrhea. Continue Flomax. Diet: HH DVT Prophylaxis: On IV heparin as per above. Code Status: FULL CODE Disposition: Home once medically stable Admission and Anticipated Discharge Date Admission Date: May 22, 2024 Subjective Patient was seen sitting up in bed and breathing comfortably Denied acute concerns at that time. States that she did have some abdominal pain however it was relieved with the use of oxycodone States she has been having copious diarrhea with last episode yesterday Review of Systems Review of Systems: All systems reviewed & are unremarkable except as noted in Subjective Physical Exam Physical Exam: General: Alert, oriented. No acute distress Psych: Appropriate mood and affect HEENT: NC/AT CV: RRR Resp: Breath sounds clear bilaterally, no increased effort of breathing Abdomen: Soft, nontender Extremities: trace edema in lower extremities bilaterally. Results & Data Results & Data Vital Signs (Past 12 Hours) Vital Signs Temp Pulse Pulse Resp BP BP Pulse Ox 05/23/24 11:14 36.6 C 61 18 111/69 98 05/23/24 07:14 36.9 C 65 18 98/58 L 98 05/23/24 03:09 36.7 C 80 18 109/75 99 05/23/24 00:00 99 H O2 Del Method 05/23/24 11:14 Room Air 05/23/24 07:14 Room Air 05/23/24 03:09 Room Air 05/23/24 00:00 Diagnostic Findings Chest X-Ray 05/22/24 13:20 XR chest 1V not portable CLINICAL HISTORY: Chest pain, nonspecific COMPARISON STUDY: Chest CT January 10, 2018. Chest radiograph February 08, 2018. FINDINGS: Lung volumes are normal. Lungs are clear. There is no pneumothorax or pleural effusion. Cardiac size is normal. Mediastinal contours are normal. There is no evidence for pulmonary edema. IMPRESSION: No acute cardiopulmonary findings. ACT 112: Negative or not required by law. Electronically signed by: Brad Jasso M.D. 05/22/2024 3:30 PM Abdomen/Pelvis CT 05/22/24 14:[address] WITH IV CONTRAST CT DOSE: 1362.85 mGy.cm HISTORY: Acute onset abdominal pain diffuse pain hx diverticulitis TECHNIQUE: Multiaxial CT images of the abdomen and pelvis were performed following the IV administration of 90 cc of Optiray, A dose lowering technique was utilized adhering to the principles of ALARA. COMPARISON STUDY: 04/27/2024 FINDINGS: Clear lung bases. No pneumoperitoneum. Unremarkable spleen, pancreas, gallbladder, adrenal glands and liver. Patent portal vein. lobulations of the kidneys. 3 mm nonobstructing calculus of the superior pole left kidney. There is no hydronephrosis. Decompressed urinary bladder with mild wall thickening. Anteflexed uterus. Interval development of a thick walled cystic focus in the left pelvis/adnexa measuring 5.5 x 6.5 cm. Trace free pelvic fluid. There is resolution of the previously described pelvic wall thickening. No CT evidence of acute appendicitis. Deep venous thrombi noted within the right common, internal and external iliac veins, in retrospect also present on the prior study. No acute fracture. IMPRESSION: 1. No bowel obstruction, bowel wall thickening or pneumoperitoneum. 2. Interval development of a thick-walled 6.5 cm left adnexal cyst. One-month follow-up pelvic ultrasound recommended. 3. Deep venous thrombi within the right common, internal and external iliac veins. 4. Left nephrolithiasis. ACT 112: Negative or not required by law. The above report was generated using voice recognition software. It may contain grammatical, syntax or spelling errors. Electronically signed by: Raúl Valdez M.D. 05/22/2024 4:15 PM (1) Deep vein thrombosis (DVT) Chronicity: acute DVT location: non-extremity vein Qualified Code(s): I82.90 - Acute embolism and thrombosis of unspecified vein
[2024-05-23 12:46] LABS: Chlam trach RNA(Genit,Ureth,Ur Not Detected (NotDetected); GC(Neis gon)RNA(Genit,Ureth,Ur Not Detected (NotDetected)
[2024-05-23] MEDS: OPTIRAY 320 125ml IV ONE (14:43)
--- NOTE | 2024-05-23 15:17 | CT Scan Report ---
CT angio chest PE protocol CT DOSE: 830.52 mGy.cm HISTORY: 28 years-old Female with PE. Acute shortness breath with chest pain TECHNIQUE: Multiple CTA images of the chest were obtained after the intravenous administration of 119 ml Optiray. Coronal and sagittal MIPS were obtained from the axial data set and were submitted for review. All measurements were obtained according to NASCET criteria. A dose lowering technique was u tilized adhering to the principles of ALARA. COMPARISON: Duplex venous Doppler study of same day, CTA of the chest 01/10/2018 FINDINGS: CTA: Heart is normal in size. No pericardial effusion. Normal caliber of the thoracic aorta. Suboptimal ev aluation of the pulmonary arteries secondary to contrast bolus timing. No central pulmonary emboli id entified. CT CHEST: No dominant thyroid nodule is seen. No pathologically adenopathy by CT size criteria. There is no pn eumothorax, pleural effusion or focal airspace consolidation. Mild patchy dependent prominent subsegm ental groundglass opacities suggestive of atelectasis. 3 mm calculus of the superior pole left kidney. No acute upper abdominal abnormality. Mild mid thorac ic dextroscoliosis. Soft tissues are within normal limits. The osseous structures appear intact. IMPRESSION: 1. Unremarkable CTA of the chest. 2. No pulmonary emboli identified. 3. Left nephrolithiasis. ACT 112: Negative or not required by law. The above report was generated using voice recognition software. It may contain grammatical, syntax o r spelling errors. Electronically signed by: Raúl Valdez M.D. 05/23/2024 3:15 PM
[2024-05-23 15:26] LABS: Trichomonas vag by NAA Not Detected (NotDetected)
--- NOTE | 2024-05-23 16:10 | Electrocardiogram Report ---
Test Reason : Blood Pressure : */* mmHG Vent. Rate : 61 BPM Atrial Rate : 61 BPM P-R Int : 154 ms QRS Dur : 98 ms QT Int : 402 ms P-R-T Axes : 43 35 11 degrees QTcB Int : 404 ms Normal sinus rhythm Normal ECG When compared with ECG of 22-May-2024 13:35, Vent. rate has decreased by [address] no longer depressed in Inferior leads ST no longer depressed in Anterior leads Confirmed by Rusty De La Garza ([id number]) on 05/23/2024 4:09:52 PM Referred By: REFERRED SELF Confirmed By: Rusty De La Garza
--- NOTE | 2024-05-23 17:08 | Ultrasound Report ---
Exam(s): US PELVIS EXAM: US Pelvis Transabdominal, Complete CLINICAL HISTORY: Reason for exam: r/o torsion. TECHNIQUE: Real-time complete transabdominal pelvic ultrasound with image documentation. COMPARISON: No relevant prior studies available. FINDINGS: Uterus/cervix: The uterus measures 7.5 cm in length. Endometrial stripe thickness measures 2.2 mm. No myometrial mass. Right ovary: Right ovary measures 2.2 cm in length and contains a few follicles. Normal blood flow. Left ovary: There is 5.6 cm diameter complex septated left adnexal cyst with wall nodularity seen. Doppler flow seen in the wall of the cyst. IMPRESSION: 1. Complex septated left adnexal cyst. The differential diagnosis includes a functional ovarian cyst versus cystic ovarian neoplasm 2. No evidence of ovarian torsion Electronically signed by: Hunter Escalante MD 05/22/24 20:10 PM
--- NOTE | 2024-05-23 17:10 | Ultrasound Report ---
Exam(s): US VENOUS BILATERAL LOWER EXTREMITIES EXAM: US Duplex Bilateral Lower Extremities Veins CLINICAL HISTORY: Reason for exam: r/o additional DVT. TECHNIQUE: Real-time duplex ultrasound scan of the bilateral lower extremity veins integrating B-mode two-dimensional vascular structure, Doppler spectral analysis, color flow Doppler imaging and compression. COMPARISON: No relevant prior studies available. FINDINGS: Right deep veins: Unremarkable. No DVT in the right common femoral, femoral, proximal deep femoral or popliteal veins. The veins demonstrate normal color flow, are normally compressible, with normal phasic flow and/or augmentation response. Right superficial veins: Unremarkable. No thrombus in the visualized right great saphenous vein. Left deep veins: Unremarkable. No DVT in the left common femoral, femoral, proximal deep femoral or popliteal veins. The veins demonstrate normal color flow, are normally compressible, with normal phasic flow and/or augmentation response. Left superficial veins: Unremarkable. No thrombus in the visualized left great saphenous vein. Soft tissues: No acute findings. No popliteal cyst. IMPRESSION: Normal bilateral lower extremity duplex venous ultrasound. Electronically signed by: Hunter Escalante MD 05/22/24 20:00 PM
[2024-05-23] MEDS: NICOTINE POLACRILEX 2 MG GUM MT PRN (20:09)
[2024-05-24 03:32] VITALS: TEMP 97.9; O2SAT 97
[2024-05-24] MEDS: ONDANSETRON INJ 2 MG/ML 2 ML VIAL IV PRN (06:10)
[2024-05-24 06:44] LABS: Basophils # (auto) 0.04 K/uL (0.00-0.20); Basophils % (auto) 0.7 %; Eosinophils # (auto) 0.24 K/uL (0.00-0.50); Eosinophils % (auto) 4.3 %; Hematocrit (blood only) 37.2 % (37.0-47.0); Hemoglobin 11.9 g/dl (12.0-16.0); Immature Granulocytes # (auto) 0.01 K/uL (0.01-0.20); Immature Granulocytes % (auto) 0.2 %; Lymphocytes # (auto) 2.17 K/uL (1.20-3.40); Lymphocytes % (auto) 38.5 %; Mean Corpuscular Hemoglobin 26.9 pg (25.0-34.0); Mean Platelet Volume 10.8 fL (9.4-12.4); Monocytes # (auto) 0.49 K/uL (0.11-0.59); Monocytes % (auto) 8.7 %; Neutrophils # (auto) 2.68 K/uL (1.40-6.50); Neutrophils % (auto) 47.6 %; Platelet Count 169 K/uL (130-400); RDW Standard Deviation 43.2 fL (36.4-46.3); Red Blood Count 4.43 M/uL (4.20-5.40); White Blood Count 5.63 K/ul (4.8-10.8)
[2024-05-24 07:06] LABS: ANTI-Xa, UFH(UnfractionatedHep 0.41 IU/ml (0.3-0.7)
[2024-05-24 07:10] LABS: Albumin Globulin Ratio 1.6 (0.9-2); Albumin Level 3.6 gm/dl (3.4-5.0); BUN Creatinine Ratio 9.9 (10-20); Bilirubin,Total 0.2 mg/dl (0.2-1.0); Calcium 8.4 mg/dl (8.6-10.3); Creatinine Clr Calc Pharmacy 111.5 ml/min; Globulin 2.3 gm/dl (2.5-4.0); Magnesium 1.7 mg/dl (1.7-2.4); Phosphorus 3.7 mg/dl (2.5-4.9); Potassium 3.8 mmol/L (3.5-5.1); Total Protein 5.9 gm/dl (6.0-8.3)
[2024-05-24 07:22] VITALS: PULSE 61; RESP 16
[2024-05-24] MEDS: INFLUENZA VACC TS2024-25(6m+)/PF (IIV3) 0.5mL Syr IM ONE (09:21)
[2024-05-24 09:58] VITALS: BP 122/63
[2024-05-24] MEDS: APIXABAN 5 MG TABLET PO ONE (10:42)
[2024-05-24 13:42] LABS: AFP Tumor Marker Serum 1.4 ng/mL
--- NOTE | 2024-05-24 17:36 | Discharge Summary ---
Discharge Summary Date of Service May 24, 2024 Principal Dx & Hospital Course #1 = Principal Diagnosis (1) Deep vein thrombosis (DVT): Plan Yakelin Dodge is a 28y/o with PMHx significant for asthma, slow transit constipation, renal calculi, chronic pain of both knees, migraines, depression/anxiety, tobacco use disorder and GERD who presented to the ED for evaluation of multiple constitutional complaints including fever/arthralgias, abdominal pain, diarrhea/vomiting, heart palpitations and SOB. She was found to have multiple deep vein thrombi within the right common, internal and external iliac veins on admitting imaging. Patient with no previous history of DVT or PE. Patient counselled extensively on smoking cessation. Patient with hypercoag labs ordered in ED and pending. Patient transitioned to eliquis on day of discharge, with no copay. #Multiple RLE DVT: CT Abd/pelvis noting "Deep vein thrombi within the right common, internal and external iliac veins." Hemodynamically stable, no increased oxygen requirement CTA chest wothout pulm emboli Bilateral lower extremity venous dopplers without DVT Hypercoagulable workup ordered in the ED, pending Started on heparin, transitioned to eliquis BID #SOB/Dyspnea resolved #Chest Pain, Heart Palpitations: resolved CXR negative Biofire respiratory panel negative. EKG negative for any acute ischemic findings but did note sinus tachycardia hs-trop negative x3 Echo ordered: no PHTN, stable EF resolved on discharge #Diarrhea, Nausea/Vomiting: resolved Stool PCR, not collected PRN IV Zofran Advance diet as tolerated #Left Adnexal Cyst: CT abd/pelvis: "Interval development of a thick-walled 6.5 cm left adnexal cyst ." SODDER consulted, appreciate recs. -PAP collected, 1 time dose of fluconazole -Follow up SODDER recommended for repeat US Other Chronic Medical Conditions: Asthma, GERD --> Can continue home medications for these specific conditions. Hold home magnesium, Colace ISO diarrhea. Continue Flomax. 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 History obtained from patient and associated chart review. Patient seen at bedside with Dr. Hernandez. Patient reports that she has had multiple episodes of vomiting overnight. She has been dealing with an ongoing fever, body aches and palpitations for the past 4 days. She reports that she had some central, sharp chest pain overnight with associated palpitations. She has notably had fevers over the past couple days with the highest being around 103F. She has had some diarrhea as well since her diagnosis of diverticulitis last month when she was seen in the ED. She completed a 10-day course of Augmentin at that time. She denies any blood in her stool or urine. She has had generalized abdominal pain since this morning. She started with a bad headache this morning as well that has not fully yet subsided. She does deal with frequent migraines at baseline. She has also had a sore throat over the past couple of days. Her daughter was recently sick but otherwise she is unaware of any other ill contacts. She has been feeling short of breath intermittently over the past few days as well. She has had to use her rescue albuterol inhaler multiple times and that seems to help with her breathing. Patient made aware that her CTAP revealed multiple deep venous thrombi within the right common, internal and external iliac veins. No personal history of DVT or PE. She does not recall any family history of DVT or PE either. She does endorse some intermittent right hip/groin/upper thigh discomfort however over the past couple of months. She does smoke about a 1/2 pack of cigarettes per day. No recent oral contraceptive use. No alcohol or illicit drug use. She does endorse some sharp pain down her left leg which has been ongoing for months and is unchanged recently. Also made her aware of the left adnexal cyst finding on her CTAP. She reports that she has had an adnexal cyst in the past which resolved spontaneously without intervention. Denies need for nicotine patch at this time - reports she has used them in the past and have caused her skin to burn. Admission Exam Per Admitting Provider VS noted and reviewed oriented x3, not in distress, speaks in sentences with no effort nor accessory muscle use normal rate, regular rhythm, no murmurs clear breath sounds bilaterally non distended, soft,Mild tenderness in all quadrants no bipedal edema, erythema, warmth no neuro deficits Discharge Exam Constitutional WD/WN, vitals as above Respiratory normal respiratory effort, lungs clear to auscultation Cardiovascular RRR, no murmur, no edema Gastrointestinal (Abdomen) normal bowel sounds, soft, nontender, no hepatosplenomegaly Updated Medication List Medication Instructions Recorded Confirmed Type ALBUTEROL HFA (VENTOLIN HFA) 2 puff inhalation BID PRN 02/08/18 05/22/24 History SOB/Wheezing #1 inhaler ondansetron 4 mg disintegrating 4 mg PO Q6H PRN nausea and 10/21/23 05/22/24 Rx tablet vomiting #12 tabs aspirin-caffeine 500 mg-32.5 mg 2 tab PO DAILY PRN Pain 05/16/24 05/22/24 History tablet (Stephany [employer]) docusate sodium 100 mg capsule 100 mg PO DAILY 05/16/24 05/22/24 History famotidine 20 mg tablet 20 mg PO DAILY 05/16/24 05/22/24 History fluticasone propionate 110 2 puff inhalation BID 05/16/24 05/22/24 History mcg/actuation HFA aerosol inhaler magnesium 200 mg tablet 200 mg PO DAILY 05/16/24 05/22/24 History oxycodone 5 mg tablet 5 mg PO BID PRN Pain 05/16/24 05/22/24 History pantoprazole 40 mg tablet,delayed 40 mg PO DAILY 05/16/24 05/22/24 History release tamsulosin 0.4 mg capsule 0.4 mg PO DAILY 05/16/24 05/22/24 History apixaban 5 mg tablet (Eliquis) See Rx Instructions .Route 05/24/24 Rx .COMPLEX #74 tabs Hospital Stay Data Consultations 05/22/24 17:10 ED Decision to Admit Stat 05/22/24 18:07 Consult Gynecology Routine Diagnostic Imagining Performed 05/22/24 14:39 CT Abd and Pelvis [CT abd pelvis IV con only] Stat 05/22/24 17:11 US pelvic complete Stat 05/22/24 17:32 US venous doppler LE BI Stat 05/23/24 13:29 CT angio chest PE protocol Urgent Pending Results Patient Have Any Pending Studies at Discharge: No Discharge Instructions Given to Patient (Per Discharging Provider) You were admitted and found to have a complex septated left adnexal cyst and multiple deep venous thrombi within the right common, internal and external iliac veins. You will follow up with OBGYN for repeat U/S and follow up on PAP results You were started on a blood thinner, Elqiuis: Please take 10mg (2 tablets) two times a day for 7 days (05/31), then transition to 5mg (1tablet) two times a day. This will likely be for at least 3-6 months, contingent on your labs and follow up Total Time Total Time Spent Total Time Spent (In Minutes): 45
[2024-05-28 00:32] LABS: PTT LA Screen 36 sec (<=40)
[2024-05-28 18:23] LABS: Anti Cardiolipin Ab IgG <2.0 GPL-U/mL; Anti Cardiolipin Ab IgM <2.0 MPL-U/mL; B2 Glycoprotein IgG <2.0 U/mL (<20.0); B2 Glycoprotein IgM <2.0 U/mL (<20.0)
== END 2024-05-24 10:54 | disposition home or self-care (01) ==
LOC: ED 13:09 → 2S 17:14 → INTOOBSV 17:14 → SUATTDRO 17:14 → 2S 18:47